=== PATIENT | female | born 1945 | race Caucasian/White ===

== ENCOUNTER 2024-01-11 08:34 | Emergency (ER) | payer MEDICARE, OTHER ==
[2024-01-11] MEDS: MORPHINE 2 MG/ML CARPUJECT IVP STA (09:01)
[2024-01-11] MEDS: ONDANSETRON 4 MG/2 ML VIAL IVP STA (09:01)
--- NOTE | 2024-01-11 09:05 | XRAY Report ---
PROCEDURE: Shoulder 2+V LT INDICATIONS: fall/pain TECHNIQUE: 3 views of the shoulder were acquired. COMPARISON: None. FINDINGS: Bones: No fractures or dislocations. No suspicious bony lesions. Visualized ribs appear intact. Acromioclavicular joint space narrowing is present. Soft tissues: No suspicious soft tissue calcifications. The visualized lungs are within normal limi ts. Pacemaker. IMPRESSION: Acromioclavicular degenerative change. No visualized acute fracture or dislocation. However, occult injury cannot be excluded. Recommend keli rt interval imaging follow-up in 7-10 days as clinically indicated for additional evaluation. Reviewed by: Nelida Tidwell MD on 01/11/2024 9:04 AM PDT Approved by: Nelida Tidwell MD on 01/11/2024 9:04 AM PDT Station ID: [id number]
[2024-01-11 09:09] LABS: BASOPHILS # (AUTO) 0.1 10^3/uL (0.0-0.1); BASOPHILS % (AUTO) 0.7 %; EOSINOPHILS # (AUTO) 0.2 10^3/uL (0.0-0.7); HCT - HEMATOCRIT 40.9 % (37.0-47.0); HGB - HEMOGLOBIN 12.7 g/dL (12.0-16.0); MEAN CORPUSCULAR HGB CONC 31.1 g/dL (32.0-36.0); MEAN CORPUSCULAR VOLUME 93.4 fL (81.0-99.0); MEAN PLATELET VOLUME 10.7 fL (7.9-10.8); MONOCYTES # (AUTO) 0.9 10^3/uL (0.0-1.0); MONOCYTES % (AUTO) 11.8 %; NEUTROPHILS # (AUTO) 5.4 10^3/uL (1.5-6.6); NEUTROPHILS % (AUTO) 72.2 %; PLT - PLATELET COUNT 202 10^3/uL (130-450); RED BLOOD COUNT 4.38 10^6/uL (4.20-5.40); RED CELL DISTRIBUTION WIDTH 14.8 % (12.0-15.0); WHITE BLOOD COUNT 7.5 x10^3/uL (4.8-10.8)
--- NOTE | 2024-01-11 09:13 | XRAY Report ---
PROCEDURE: Ankle 3+V LT INDICATIONS: fall/swelling TECHNIQUE: 3 views of the ankle were acquired. COMPARISON: None. FINDINGS: Bones: Subtle oblique fracture of the distal fibular shaft extending to the articular surface. Locat ion suggests the possibility of an injury to the syndesmosis. No other fractures or dislocations. Que stion minimal widening of the lateral ankle mortise. No suspicious bony lesions. Soft tissues: No tibiotalar joint effusion. Achilles tendon appears normal. IMPRESSION: Subtle oblique fracture of the distal fibular shaft extending to the articular surface. Location sugg ests the possibility of an injury to the syndesmosis. No other fractures or dislocations. Question mi nimal widening of the lateral ankle mortise. Reviewed by: Arcenio Raymond MD on 01/11/2024 9:11 AM PDT Approved by: Arcenio Raymond MD on 01/11/2024 9:11 AM PDT Station ID: [id number]
[2024-01-11 09:22] LABS: ALBUMIN/GLOBULIN RATIO 1.3 (1.0-2.2); BILIRUBIN,TOTAL 0.6 mg/dL (0.2-1.0); CALCIUM 9.5 mg/dL (8.5-10.3); POTASSIUM 4.1 mmol/L (3.5-4.5)
[2024-01-11 09:34] LABS: INR 1.8 (0.8-1.2); PT - PROTHROMBIN TIME 18.9 secs (9.9-12.6)
--- NOTE | 2024-01-11 09:42 | ED Physician Documentation ---
History of Present Illness - Stated complaint Stated Complaint: GLF/ANKLE LEG PX - Chief complaint Chief Complaint: Trauma Ext - History obtained from History obtained from: Patient - Additonal information Additional information: Patient is a 78-year-old female with a history of a pacemaker on Xarelto presenting for evaluation of ground-level fall. She is visiting the area from [place] with her at a local [employer] park. She reports missing a step coming out of their travel trailer on the second step and fell down. She reports landing on her left side. She does not believe she hit her head but does report significant pain to the left ankle. Denies LOC. Has been using acetaminophen. Also reports pain to the left shoulder. Review of Systems Constitutional: denies: Fever Cardiac: denies: Chest pain / pressure Respiratory: denies: Dyspnea GI: denies: Abdominal Pain Musculoskeletal: reports: Extremity pain PD PAST MEDICAL HISTORY - Past Medical History Cardiovascular: Hypertension, High cholesterol, Arrhythmia, Valve disorder Neuro: None Endocrine/Autoimmune: Type 2 diabetes, HyPOthyroidism Psych: Depression - Past Surgical History Past Surgical History: Yes General: Appendectomy, Colonoscopy, Other /EXCAVATION LABORER: section, Dilation and currettage, Other Cardiovascular: Valve replacement, Pacemaker HEENT: Cataracts - Present Medications Home Medications: Ambulatory Orders Medication Instructions Recorded Confirmed Atorvastatin Calcium 40 mg PO QPM 01/11/24 01/11/24 Bumetanide [Bumex] 1 mg PO DAILY 01/11/24 01/11/24 Cholestyramine [Questran] 4 gm PO DAILY 01/11/24 01/11/24 Empagliflozin [Jardiance] 10 mg PO DAILY 01/11/24 01/11/24 Fluticasone [Flonase] 1 sprays PEDRO BID PRN 01/11/24 01/11/24 Levothyroxine [Synthroid] 50 mcg PO QDAC 01/11/24 01/11/24 Metoprolol Succinate [Toprol Xl] 25 mg PO DAILY 01/11/24 01/11/24 Oxycodone HCl/Acetaminophen 1 each PO Q6H PRN #14 tablet 01/11/24 [Percocet 5-325 mg Tablet] Rivaroxaban [Xarelto] 20 mg PO QPM 01/11/24 01/11/24 Sertraline HCl 100 mg PO QPM 01/11/24 01/11/24 Spironolactone [Aldactone] 25 mg PO DAILY 01/11/24 01/11/24 - Allergies Allergies/Adverse Reactions: Allergies Allergy/AdvReac Type Severity Reaction Status Date / Time hydrochlorothiazide Allergy Rash Verified 01/11/24 08:48 Sulfa (Sulfonamide Allergy Rash Verified 01/11/24 08:48 Antibiotics) - Social History Does the pt smoke?: No Smoking Status: Never smoker Does the pt have substance abuse?: No - POLST Patient has POLST: No PD ED PE NORMAL - General General: Alert and oriented X 3, No acute distress, Well developed/nourished - HEENT HEENT: Atraumatic, Moist mucous membranes, Pharynx benign - Neck Neck: Supple, no meningeal sign, No bony TTP - Cardiac Cardiac: RRR, Strong equal pulses - Respiratory Respiratory: No respiratory distress, Clear bilaterally - Abdomen Abdomen: Normal bowel sounds, Soft, Non tender, Non distended - Derm Derm: Warm and dry - Extremities Extremities: Other (No tenderness to left shoulder on palpation but does have pain with range of motion, no pain distally to humerus, normal range of motion at left elbow and wrist. Tenderness and swelling to left ankle, distal pulses intact, motor and sensation grossly intact) - Neuro Neuro: Alert and oriented X 3, No motor deficit, No sensory deficit, Normal speech Eye Opening: Spontaneous Motor: Obeys Commands Verbal: Oriented GCS Score: 15 Results - Vitals Vitals: Vital Signs - 24 hr 01/11/24 01/11/24 01/11/24 08:43 11:00 12:29 Temperature 36.1 C L 36.2 C L Heart Rate 64 58 L 65 Respiratory 20 16 16 Rate Blood Pressure 147/92 H 135/87 H 118/77 O2 Saturation 95 97 96 Oxygen O2 Source Room air - Labs Labs: Laboratory Tests 01/11/24 01/11/24 01/11/24 09:02 09:02 09:02 WBC 7.5 RBC 4.38 Hgb 12.7 Hct 40.9 MCV 93.4 MCH 29.0 MCHC 31.1 L RDW 14.8 Plt Count 202 MPV 10.7 Neut # (Auto) 5.4 Lymph # (Auto) 1.0 L [place] # (Auto) 0.9 Eos # (Auto) 0.2 Baso # (Auto) 0.1 Absolute Nucleated RBC 0.00 Nucleated RBC % 0.0 PT 18.9 H INR 1.8 H Sodium 139 Potassium 4.1 Chloride 108 Carbon Dioxide 26 Anion Gap 5.0 L BUN 28 H Creatinine 1.0 Estimated GFR (MDRD) 54 L Glucose 92 Calcium 9.5 Total Bilirubin 0.6 AST 19 ALT 14 Alkaline Phosphatase 70 Total Protein 7.0 Albumin 4.0 Globulin 3.0 Albumin/Globulin Ratio 1.3 PD Medical Decision Making - ED course Complexity details: reviewed results, re-evaluated patient, d/w patient, d/w family ED course: Patient is a 78-year-old female presenting for evaluation after a fall last night. She is on a blood thinner. Does not believe she hit her head but may have some distracting injuries with significant pain in the left ankle so CT head and cervical spine were obtained with no findings. X-ray of the left shoulder is negative for fracture or dislocation. X-ray of the ankle shows a distal left fibular fracture.Reviewed with orthopedic surgery and recommendations are that she is nonweightbearing. She was placed into a splint and given crutches. Per her they are planning to drive back home to [place] and will follow-up with an orthopedist there. They were provided a copy of her x-ray images on a disc. 1015 - D/W Dr. Chaves (ortho) - He reviewed x-rays and at this time would recommend that she be nonweightbearing. Departure - Departure Disposition: 01 Home, Self Care Condition: Stable Instructions: ED Fx Ankle Lateral Malleolus Prescriptions: Oxycodone HCl/Acetaminophen [Percocet 5-325 mg Tablet] 1 each PO Q6H PRN #14 tablet PRN Reason: pain Comments: Your testing today shows that you have a fracture in the left ankle. I have spoken with our on-call orthopedist and they do recommend that you not put any weight on the leg until you are seen for follow-up. I would recommend follow-up with an orthopedic surgeon when you return home as soon as possible. I have sent a prescription for narcotic pain medication to [facility] in [place]. I am prescribing a short course of narcotic pain medication for you. These are potentially dangerous and addictive medications that should be used carefully. These medications may constipate you. Take an yekh-kcm-xvbhhoo stool softener (docusate) twice daily with plenty of water while taking these medications. If you go 24 hours without a bowel movement, take jrho-kjw-jggghic miralax, per package instructions. Do not drink or drive while taking these medications. If you received narcotic or sedating medications while in the emergency department, do not drive for 24 hours. Store this medication in a safe, secure place and out of reach of children. It is a violation of federal law to give or sell this medication to another person or to use in a manner other than prescribed. The ED will not refill narcotic prescriptions, including prescriptions lost or stolen. To dispose of unwanted medications: 1. [facility] at [address] in [place] has a medication drop box. They accept prescription medications (in pill form) Wednesday through Wednesday 9:00 a.m. to 5:00 p.m. 2. [facility] accepts prescription medications (in pill form only) for disposal year round. Call for more information. 3. Contact the [facility] for the next [facility] sponsored prescription drug collection event. , [phone], or [phone]; Note that many narcotic pain relievers also contain Tylenol/acetaminophen. Please ensure that your total dose of acetaminophen from all sources does not exceed 3 g (3000 mg) per day. IMPRESSION: Subtle oblique fracture of the distal fibular shaft extending to the articular surface. Location suggests the possibility of an injury to the syndesmosis. No other fractures or dislocations. Question minimal widening of the lateral ankle mortise. Forms: PCP List Discharge Date/Time: 01/11/24 12:31
--- NOTE | 2024-01-11 10:00 | CT Report ---
PROCEDURE: Head WO INDICATIONS: fall on eliquis TECHNIQUE: Noncontrast 4.5 mm thick angled axial sections acquired from the foramen magnum to the vertex. For r adiation dose reduction, the following was used: automated exposure control, adjustment of mA and/or kV according to patient size. COMPARISON: CT cervical spine 01/11/2024 FINDINGS: Image quality: Excellent. The ventricular system and cortical sulci demonstrate atrophy, consistent for patient's stated age. There are areas of hypodensity in the periventricular and subcortical white matter. There is no acut e intra or extra-axial fluid collection. No acute hemorrhage, mass lesion or midline shift. Brainst em is unremarkable. Globes are symmetrical. Sinuses are aerated. Osseous structures are intact. IMPRESSION: 1. No acute intracranial process. 2. Moderate atrophy and chronic microvascular ischemic changes. Reviewed by: Nelida Tidwell MD on 01/11/2024 9:59 AM PDT Approved by: Nelida Tidwell MD on 01/11/2024 9:59 AM PDT Station ID: [id number]
--- NOTE | 2024-01-11 10:02 | CT Report ---
PROCEDURE: Cervical Spine WO INDICATIONS: fall on eliquis TECHNIQUE: Noncontrast 3 mm thick sections acquired from the skull base to the T4 level. Sagittal and coronal r eformats were then constructed. For radiation dose reduction, the following was used: automated exp osure control, adjustment of mA and/or kV according to patient size. COMPARISON: CT head 01/11/2024 FINDINGS: Image quality: Excellent. Bones: No fractures or dislocations. Visualized superior ribs are intact. Significant multilevel d egenerative changes most severe at C5-6, including disc space narrowing as well as anterior osteophyt es. Soft tissues: Prevertebral soft tissues are normal in thickness. No paravertebral hematomas. No ap ical pneumothoraces. IMPRESSION: Multilevel degenerative changes without visualized fracture. Reviewed by: Nelida Tidwell MD on 01/11/2024 10:01 AM PDT Approved by: Nelida Tidwell MD on 01/11/2024 10:01 AM PDT Station ID: [id number]
[2024-01-11 12:37] VITALS: BP 118/77; O2SAT 96
== END 2024-01-11 12:31 | disposition home or self-care (01) ==
LOC: ED 08:34
DX: S82.432A Displaced oblique fracture of shaft of left fibula, initial encounter for closed fracture (principal); S46.912A Strain of unspecified muscle, fascia and tendon at shoulder and upper arm level, left arm, initial encounter; W10.9XXA Fall (on) (from) unspecified stairs and steps, initial encounter; Y92.89 Other specified places as the place of occurrence of the external cause; I10 Essential (primary) hypertension; E78.00 Pure hypercholesterolemia, unspecified; E11.9 Type 2 diabetes mellitus without complications; E03.9 Hypothyroidism, unspecified; Z79.01 Long term (current) use of anticoagulants; Z79.899 Other long term (current) drug therapy; Z79.84 Long term (current) use of oral hypoglycemic drugs
CPT/HCPCS: 36415; 80053; 85025; 85610; 96374; 96375; 99284